=== PATIENT | female | born 1980 | race Two or more races ===

== ENCOUNTER 2017-11-26 23:19 | Emergency (ER) | payer BC ==
[~2017-11-26] VITALS: Ht 160 cm; Wt 63.5 kg
[2017-11-26] MEDS ORDERED: SYNTHROID75 MCG (23:29)
[2017-11-26] MEDS ORDERED: PRILOSEC OTC20 MG PO (23:29)
[2017-11-27] MEDS ORDERED: CIPRO500 MG PO (08:07)
[2017-11-27] MEDS ORDERED: INTESTINEX680 M1 PO (08:07)
[2017-11-27] MEDS ORDERED: FLAGYL500MG PO (08:07)
[2017-11-27] MEDS ORDERED: PROTONIX40 MG PO (08:07)
== END 2017-11-27 11:55 | disposition home or self-care (01) ==
LOC: ER 23:19
DX: K52.9 Noninfective gastroenteritis and colitis, unspecified (principal); E86.0 Dehydration; R10.31 Right lower quadrant pain